=== PATIENT | male | born 1955 | race African-American/Black ===

== ENCOUNTER 2018-06-11 10:51 | Emergency (ER) | payer MEDICAID ==
[~2018-06-11] VITALS: Ht 190.5 cm; Wt 91.0 kg
[2018-06-11 10:59] VITALS: BP 122/83
== END 2018-06-11 14:23 | disposition left against medical advice (07) ==
LOC: ER 11:41
DX: Z53.21 Procedure and treatment not carried out due to patient leaving prior to being seen by health care provider (principal); R06.02 Shortness of breath
CPT/HCPCS: 93005